=== PATIENT | female | born 1935 | race Caucasian/White ===

== ENCOUNTER → 2017-08-18 | Outpatient (REF) | payer MEDICARE, OTHER | LOC: M LAB REF 18:34 | DX: C44.01 Basal cell carcinoma of skin of lip (principal) | CPT/HCPCS: 88305 ==

== ENCOUNTER 2017-11-16 06:22 | Day surgery (SDC) | payer MEDICARE ==
[2017-11-16] MEDS ORDERED: LIDOCAINE 1% MDV 20ML VIAL SQ (07:00)
[2017-11-16] MEDS ORDERED: LR 1,000 ML IV (07:00)
[2017-11-16] MEDS ORDERED: MIDAZOLAM INJ 2 MG/2 ML VIAL (J2250) As Ordered (07:05)
[2017-11-16] MEDS ORDERED: fentaNYL 100 MCG/2 ML INJECTION (J3010) As Ordered ×2 (07:05→09:30)
[2017-11-16] MEDS ORDERED: PROPOFOL 200 MG/20 ML VIAL As Ordered (07:06)
[2017-11-16] MEDS ORDERED: LIDOCAINE 2% INJ 100 MG/5 ML SDV (FOR ANES.) As Ordered ×2 (07:06→08:59)
[2017-11-16] MEDS ORDERED: ROCURONIUM BROMIDE 50 MG/5 ML VIAL As Ordered (07:06)
[2017-11-16] MEDS: METHYLENE BLUE 0.5% (5MG/ML) 10 ML AMP (PROVAYBLUE)(Q9968 PER 1MG) As Ordered (07:15)
[2017-11-16] MEDS: LIDOCAINE W/EPINEPHRINE 1% 20ML VIAL As Ordered (07:57)
[2017-11-16] MEDS ORDERED: ePHEDrine SULFATE 25 MG/5 ML(5MG/ML) SYRINGE As Ordered ×2 (08:06→09:02)
[2017-11-16] MEDS ORDERED: PHENYLephrine HCL 500 MCG/5 ML (100MCG/ML) SYRINGE (J2370) As Ordered (08:06)
[2017-11-16] MEDS ORDERED: KETOROLAC 60 MG/2 ML VIAL (J1885) As Ordered (09:15)
[2017-11-16] MEDS: BACITRACIN OINT 30GM As Ordered (09:31)
[2017-11-16] MEDS: EPINEPHrine 1MG/ML INJ 30ML MD-VIAL As Ordered (09:32)
[2017-11-16] MEDS ORDERED: fentaNYL 100 MCG/2 ML INJECTION (J3010) IV (10:00)
[2017-11-16] MEDS ORDERED: KETOROLAC 30 MG/ML VIAL (J1885) IV (10:00)
[2017-11-16] MEDS ORDERED: ONDANSETRON 4MG/2ML VIAL (J2405) IV (10:00)
[2017-11-16] MEDS: LR 1,000 ML IV ×2 (10:00→10:15)
[2017-11-16] MEDS: ACETAMINOPH W/CODEINE #3 TAB UD PO (21:53)
[2017-11-17] MEDS: DYAZIDE 37.5/25 CAP (TRIAM/HCTZ) PO (09:19)
[2017-11-17] MEDS: ATENOLOL 50 MG TAB PO (09:19)
[2017-11-17] MEDS: ACETAMINOPH W/CODEINE #3 TAB UD PO (09:23)
== END 2017-11-17 14:36 | disposition home or self-care (01) ==
LOC: M SDC 06:22 → M MSPAV 12:01
DX: C00.2 Malignant neoplasm of external lip, unspecified (principal); I48.0 Paroxysmal atrial fibrillation; I10 Essential (primary) hypertension; E78.00 Pure hypercholesterolemia, unspecified; M12.9 Arthropathy, unspecified; J30.9 Allergic rhinitis, unspecified; Z79.899 Other long term (current) drug therapy; Z79.01 Long term (current) use of anticoagulants; Z79.82 Long term (current) use of aspirin; Z78.0 Asymptomatic menopausal state; Z92.3 Personal history of irradiation; Z85.3 Personal history of malignant neoplasm of breast
CPT/HCPCS: 14040

== ENCOUNTER → 2017-12-02 | Outpatient (REF) | payer MEDICARE | LOC: M LAB REF 16:41 | DX: C44.01 Basal cell carcinoma of skin of lip (principal) | CPT/HCPCS: 87186 ==

== ENCOUNTER 2017-12-09 07:47 | Day surgery (SDC) | payer MEDICARE ==
[2017-12-09] MEDS: LR 1,000 ML IV (09:00)
[2017-12-09] MEDS: METHYLENE BLUE 0.5% (5MG/ML) 10 ML AMP (PROVAYBLUE)(Q9968 PER 1MG) As Ordered (09:59)
[2017-12-09] MEDS: EPINEPHrine 1MG/ML INJ 30ML MD-VIAL As Ordered (10:00)
[2017-12-09] MEDS ORDERED: MIDAZOLAM INJ 2 MG/2 ML VIAL (J2250) As Ordered (10:07)
[2017-12-09] MEDS ORDERED: LIDOCAINE 2% INJ 100 MG/5 ML SDV (FOR ANES.) As Ordered (10:07)
[2017-12-09] MEDS ORDERED: fentaNYL 250 MCG/5 ML INJECTION (J3010) As Ordered (10:07)
[2017-12-09] MEDS ORDERED: PROPOFOL 200 MG/20 ML VIAL As Ordered (10:07)
[2017-12-09] MEDS ORDERED: ONDANSETRON 4MG/2ML VIAL (J2405) As Ordered (10:07)
[2017-12-09] MEDS: LIDOCAINE W/EPINEPHRINE 1% 20ML VIAL As Ordered (11:16)
[2017-12-09] MEDS: BACITRACIN OINT 30GM As Ordered (11:19)
== END 2017-12-09 12:00 | disposition home or self-care (01) ==
LOC: M SDC 07:47
DX: L57.9 Skin changes due to chronic exposure to nonionizing radiation, unspecified (principal); I48.91 Unspecified atrial fibrillation; I10 Essential (primary) hypertension; Z79.82 Long term (current) use of aspirin; Z79.899 Other long term (current) drug therapy
CPT/HCPCS: 40799

== ENCOUNTER → 2018-02-14 | Outpatient (CLI) | payer MEDICARE | LOC: M PLARAD 13:07 | DX: Z85.3 Personal history of malignant neoplasm of breast (principal); R22.2 Localized swelling, mass and lump, trunk | CPT/HCPCS: 78815 ==

== ENCOUNTER → 2018-02-15 | Outpatient (REF) | payer MEDICARE | LOC: M LAB REF 09:57 | DX: C44.01 Basal cell carcinoma of skin of lip (principal) | CPT/HCPCS: 88305 ==

== ENCOUNTER → 2018-04-11 | Outpatient (CLI) | payer MEDICARE | LOC: M ONCR 08:56 | DX: C50.912 Malignant neoplasm of unspecified site of left female breast (principal) | CPT/HCPCS: G0463 ==

== ENCOUNTER → 2018-05-16 | Outpatient (REF) | payer MEDICARE ==
[2018-05-16 14:20] LABS: FOLATE > 24.0 NG/ML
== END ==
LOC: M LAB REF 13:41
DX: D75.89 Other specified diseases of blood and blood-forming organs (principal)
CPT/HCPCS: 82746

== ENCOUNTER → 2018-07-05 | Outpatient (CLI) | payer MEDICARE ==
[~2018-07-05] MED LIST: ACET30TAB PO; ANAS1TAB2 PO; ASPI1TAB PO; ATEN50TA2 PO; CALC600T60 PO; ELIQ2.5T PO; METO1TAB7 PO; MULTCAP PO; POTA99TA PO; TRIA37.5 PO; TRIA37.53 PO; VICO5TAB16 PO
--- NOTE | 2018-07-06 10:37 | RADONC ---
RADIATION ONCOLOGY FOLLOWUP NOTE DATE: 07/05/2018 CHART NUMBER: [id number] DIAGNOSIS: Left breast cancer. STAGE: Recurrent ECOG PERFORMANCE STATUS: 0 FOLLOWUP NOTE: Ms. Boston is a very pleasant 83-year-old white female with the diagnosis of recurrent left breast cancer who is well-known to me and is now presenting for reevaluation of her left chest wall. The patient's review of systems is noncontributory. She denies nausea, vomiting, fevers, chills, night sweats, diplopia, headaches, anxiety or depression, anorexia, weight loss, visual disturbances, chest pain, urinary or bowel difficulties, bone pain, or neurological problems. PHYSICAL EXAMINATION: The patient is a well-developed, well-nourished female in no acute distress. HEENT exam is normocephalic, atraumatic. Extraocular movements are intact. There is no palpable cervical, supraclavicular, infraclavicular, axillary, or inguinal lymphadenopathy present. Lungs are clear to auscultation and percussion. Heart has a regular rate and rhythm. Abdomen is benign with no hepatosplenomegaly, masses, or tenderness. The patient's chest reveals bilateral mastectomy scars present. There is no evidence of nodularity, ulceration, or residual disease of her left chest wall. Skeletal examination reveals no tenderness to pressure or percussion of the bony skeleton. Extremities reveal no clubbing, cyanosis, or edema. Neurologic exam is grossly intact, as is the remainder of the physical examination. ASSESSMENT: The patient is clinically stable at this time. She is being seen by Dr. Salgado in medical oncology for her systemic treatment. I have scheduled the patient at her request to see me again in 3 months for continued close observation. The patient will also continue self chest wall examination and has been instructed to contact me if she has any concerns whatsoever. cc: MD Penny Lancaster MD Jason White, MD
== END ==
LOC: M ONCR 09:42
PROVIDERS: ATTEND Radiology Radiation Oncology
DX: Z85.3 Personal history of malignant neoplasm of breast (principal)

== ENCOUNTER → 2018-10-04 | Outpatient (CLI) | payer MEDICARE ==
--- NOTE | 2018-10-05 09:13 | RADONC ---
RADIATION ONCOLOGY FOLLOWUP NOTE DATE: 10/04/2018 CHART #: [id number] DIAGNOSIS: Left breast cancer. STAGE: Recurrent. ECOG PERFORMANCE STATUS: 0. FOLLOWUP NOTE: Ms. Boston is a very pleasant 83-year-old white female with the diagnosis of a recurrent left breast carcinoma who is well-known to me and is now presenting for routine followup visit and reevaluation of her left chest wall. The patient presents today reporting that she is doing quite well with no complaints at this time related to her radiation therapy or disease. She has no chest wall or bone pain. REVIEW OF SYSTEMS: The patient's review of systems is noncontributory. Denies nausea, vomiting, fevers, chills, night sweats, diplopia, headaches, anxiety or depression, anorexia, weight loss, visual disturbances, chest pain, urinary or bowel difficulties, bone pain, or neurological problems. PHYSICAL EXAMINATION: The patient is a well-developed, well-nourished, 83-year-old female in no acute distress. HEENT exam is normocephalic, atraumatic. Extraocular movements are intact. There is no palpable cervical, supraclavicular, infraclavicular, axillary, or inguinal lymphadenopathy present. Lungs are clear to auscultation and percussion. Heart has a regular rate and rhythm. Abdomen is benign with no hepatosplenomegaly, masses, or tenderness. Breast examination reveals the right breast is free of masses or discharge. Her left chest wall is smooth with no evidence of nodularity, ulceration or recurrent disease. Skeletal examination reveals no tenderness to pressure or percussion of the bony skeleton. Extremities reveal no clubbing, cyanosis, or edema. Neurologic exam is grossly intact, as is the remainder of the physical examination. ASSESSMENT: The patient is clinically doing well and is presently undergoing systemic therapy with her medical oncologist, Dr. Salgado. She is being seen by Dr. Salgado on a monthly basis. In light of this, I am discharging her from my followup except on a p.r.n. basis. I let her know that we are available to her at anytime if she should have any questions or if we could be of any assistance whatsoever. The patient has my cell phone number as well as my office number. cc: MD Penny Lancaster MD Jason White, MD
== END ==
LOC: M ONCR 09:51
PROVIDERS: ATTEND Radiology Radiation Oncology
DX: C50.912 Malignant neoplasm of unspecified site of left female breast (principal)

== ENCOUNTER → 2018-11-09 | Outpatient (CLI) | payer MEDICARE ==
[~2018-11-09] MED LIST changes: +ACET-716 PO; -ACET30TAB PO; -ASPI1TAB PO; +ASPI81TA26 PO; +HM P99TA PO; -VICO5TAB16 PO; +VICO5TAB17 PO
--- NOTE | 2018-11-09 13:58 | REP ---
UNILATERAL MAMMOGRAM RIGHT BREAST WITH 3D TOMOSYNTHESIS: Patient has had a prior left mastectomy for cancer, 01/03/2015. Right breast mammogram performed in the MLO and CC projections with 3D tomosynthesis and compared to multiple prior exams, most recently 10/25/2017. Mild to moderate fibroglandular tissue is again seen in the right breast with no suspicious mass or architectural distortion. No clustered microcalcifications are seen. IMPRESSION: BIRADS 1: BI-RADS/ACR category 1 mammogram. Negative Mammogram. ACR 1 negative mammogram right breast in this patient status post left mastectomy. Suggest followup mammogram in 1 year. This mammogram was interpreted with the aid of an FDA-approved computer-aided detection system. The patient states she/he had a clinical breast exam in 10/2018. The patient letter being requested is M1. Electronically Signed by Milind Graves MD 11/09/2018 04:40 P
== END ==
LOC: M RAD 12:52
PROVIDERS: ATTEND Internal Medicine Medical Oncology
DX: Z12.31 Encounter for screening mammogram for malignant neoplasm of breast (principal); Z85.3 Personal history of malignant neoplasm of breast; Z90.12 Acquired absence of left breast and nipple

== ENCOUNTER → 2020-04-09 | Outpatient (CLI) | payer MEDICARE ==
[~2020-04-09] MED LIST changes: +FLUTISP
--- NOTE | 2020-04-18 08:42 | REP ---
RIGHT BREAST MAMMOGRAM WITH 3D-TOMOSYNTHESIS HISTORY: Malignant mastectomy left breast in 2014. No family history of breast cancer. COMPARISON: Mammogram 11/09/2018, as well as other prior exams. TECHNIQUE: MLO and CC views of the right breast are performed with 3D tomosynthesis. FINDINGS: There is [id number] fibroglandular tissue in the upper outer quadrant of the right breast. Volpara breast density is B. No new mass or architectural distortion is seen. No clustered microcalcifications are seen. IMPRESSION: ACR 1 negative mammogram right breast in this patient status post left mastectomy. No new mass or clustered microcalcifications. Recommend follow-up mammogram in one year. This mammogram was interpreted with the aid of an FDA approved computer-aided detection system. Patient states her last clinical breast exam was February 2020. Patient letter: 1. BALJEET
== END ==
LOC: M WHC 10:05
PROVIDERS: ATTEND Internal Medicine Medical Oncology
DX: Z12.31 Encounter for screening mammogram for malignant neoplasm of breast (principal); Z85.3 Personal history of malignant neoplasm of breast; Z90.12 Acquired absence of left breast and nipple

== ENCOUNTER 2020-04-15 09:44 | Outpatient (RCR) | payer MEDICARE | END 2020-04-16 | LOC: M PT 09:44 | PROVIDERS: ATTEND Family Medicine | DX: M25.511 Pain in right shoulder (principal) ==

== ENCOUNTER 2020-05-13 12:38 | Outpatient (RCR) | payer MEDICARE | END 2020-05-17 | LOC: M PT 12:38 | PROVIDERS: ATTEND Family Medicine | DX: Z51.89 Encounter for other specified aftercare (principal); M25.511 Pain in right shoulder ==

== ENCOUNTER 2020-05-27 10:31 | Outpatient (RCR) | payer MEDICARE | END 2020-06-16 | LOC: M PT 10:31 | PROVIDERS: ATTEND Family Medicine | DX: M25.511 Pain in right shoulder (principal) ==

== ENCOUNTER → 2021-01-21 | Outpatient (CLI) | payer MEDICARE ==
[~2021-01-21] MED LIST changes: +COVI100V IM; -HM P99TA PO; +MULT-90 PO; +POTA99TA14 PO
--- NOTE | 2021-01-21 12:50 | REP ---
INDICATION: RIGHT SHOULDER PAIN COMPARISON: None. TECHNIQUE: Internal rotation, external rotation, and Y view. FINDINGS: There is increased sclerosis and subtle irregularity to the calcified glenoid rim as well as moderate osteophytes forming along the inferior margin of the humeral head and glenoid. The acromioclavicular joint appears normal. The subacromial space is normal. IMPRESSION: Degenerative changes at the acromioclavicular joint. <Electronically signed by Rey Barbosa > 01/21/21 [id number]
== END ==
LOC: M RAD 12:02
PROVIDERS: ATTEND Internal Medicine Medical Oncology
DX: M19.90 Unspecified osteoarthritis, unspecified site (principal)

== ENCOUNTER → 2021-05-04 | Outpatient (CLI) | payer MEDICARE ==
--- NOTE | 2021-05-04 14:16 | REPMRS ---
Patient History The patient states she had a clinical breast exam in March 2021. Patient is postmenopausal, has history of skin cancer at age 83, and has history of cancer in the left breast at age 79. No known family history of cancer. Malignant mastectomy of the left breast, January 03, 2015. Malignant US guided breast biopsy of the left breast, November 26, 2014. Malignant lumpectomy of the left breast, 2004. Took hormonal contraceptives for 1 month. Took estrogen for 10 years. Took progesterone for 10 years. Took tamoxifen for 5 years. Tomosynthesis is performed. Volpara breast density is c. Patient states no breast complaints today. Patient has signed MRS History Sheet. Digital Woman Screen Mammo: May 04, 2021 - Exam #: [id number] CC and MLO view(s) were taken of the right breast. Technologist: Kirstie Ball, Technologist Prior study comparison: April 09, 2020, bilateral digital woman screen mammo performed at [facility]. November 09, 2018, bilateral digital mammo screening bilat, performed at [facility]. FINDINGS: There are scattered fibroglandular densities. There has been no change in the appearance of the mammogram from the prior studies. There is a mild amount of residual fibroglandular tissue . There is no interval development of dominant mass, architectural distortion, or clustered microcalcification suggestive of malignancy. No significant changes when compared with prior studies. Assessment: BI-RADS/ACR category 1 mammogram. Negative Mammogram. Recommendation Routine screening mammogram in 1 year (for women over age 40). This mammogram was interpreted with the aid of an FDA-approved computer-aided dectection system. Electronically Signed By: Milind Graves MD 05/04/21 [id number]
--- NOTE | 2021-05-04 15:07 | DEXAMM ---
INDICATION: OSTEOPOROSIS. COMPARISON: 10/07/2016, 03/26/2005. TECHNIQUE: Bone density was measured using dual-energy x-ray absorptiometry (DEXA). FINDINGS: AP SPINE L1-L4 BMD 1.589 g/cm2 Young Adult T-Score 3.2 Age Matched Z-Score 5.1. LT FEMUR, TOTAL BMD 0.988 g/cm2 Young Adult T-Score -0.2 Age Matched Z-Score 2.1. LT NECK BMD 0.953 g/cm2 Young Adult T-Score -0.6 Age Matched Z-Score 1.7. RT FEMUR, TOTAL BMD 1.028 g/cm2 Young Adult T-Score 0.2 Age Matched Z-Score 2.4. RT NECK BMD 1.049 g/cm2 Young Adult T-Score 0.1 Age Matched Z-Score 2.4. IMPRESSION: There is normal bone density of the spine. There is normal bone density of the left hip. There is normal bone density of the right hip. The density of the spine has increased 10.1% since the initial exam on 03/26/2005. The density of the spine decreased 2.3% since most recent exam on 10/07/2016. The density of the left hip has decreased 4.4% since initial exam on 03/26/2005. The density of the left hip has increased 0.8% since most recent exam on 10/07/2016. The density of the right hip has decreased 6.2% since the initial exam on 03/26/2005. The density of the right hip has increased 1.5% since the most recent exam on 10/07/2016. FOLLOW-UP: Recommendation for the next bone density exam: 5 years. <Electronically signed by Milind Graves > 05/04/21 [id number]
== END ==
LOC: M WHC 13:06
PROVIDERS: ATTEND Family Medicine
DX: Z12.31 Encounter for screening mammogram for malignant neoplasm of breast (principal); Z85.3 Personal history of malignant neoplasm of breast; Z85.828 Personal history of other malignant neoplasm of skin; Z90.12 Acquired absence of left breast and nipple; M81.0 Age-related osteoporosis without current pathological fracture

== ENCOUNTER → 2021-05-05 | Outpatient (CLI) | payer MEDICARE ==
[~2021-05-05] MED LIST changes: +ISOVUE-300 61% 50ML VIAL As Ordered ONE; +LIDOCAINE 1% MDV 20ML VIAL As Ordered ONE; +methylPREDNISolone SUSP 40MG/ML 1ML VIAL (DEPO MEDROL) As Ordered ONE
--- NOTE | 2021-05-05 17:20 | REP ---
INDICATION: PRIMARY OA RT SHOULDER W/ PAIN. COMPARISON: None TECHNIQUE: The procedure was performed by GETACHEW Vargas, under the direct supervision of Dr. Graves. The benefits and risks of the procedure were explained to the patient, and an informed consent was obtained. Directly prior to the start of the procedure, a formal time-out was completed in the procedure room. The right shoulder joint space was localized using fluoroscopic guidance. The skin was prepped and draped in a sterile fashion. Approximately 5 mL of 1% Lidocaine 10 mg/ml was used as a local anesthetic. Using fluoroscopic guidance, a #22 gauge spinal needle was inserted and advanced into the right shoulder joint space. Approximately 1 mL of Isovue 300 was injected to verify placement. Seven mL of a solution containing 5 mL 1% lidocaine 10 mg/ml and 2 ml Depo-Medrol 40 mg was injected into the joint space. The needle was removed and hemostasis was achieved. FINDINGS: The patient tolerated the procedure well and there were no immediate complications. IMPRESSION: 1. Technically successful right shoulder arthrogram.. 0.1 minutes of fluoroscopy time was utilized for this procedure. Some fluoroscopic images are performed with last image hold technology. These images require no additional radiation. <Electronically signed by Sofy Ronquillo > 05/05/21 1317 <Electronically signed by Milind Graves > 05/05/21 [id number]
== END ==
LOC: M RADPRO 11:59
PROVIDERS: ATTEND Physician Assistant
DX: M19.011 Primary osteoarthritis, right shoulder (principal)
CPT/HCPCS: 20610; 77002; J1030; Q9967

== ENCOUNTER → 2022-05-18 | Outpatient (CLI) | payer MEDICARE ==
[~2022-05-18] MED LIST changes: -ISOVUE-300 61% 50ML VIAL As Ordered ONE; -LIDOCAINE 1% MDV 20ML VIAL As Ordered ONE; -TRIA37.53 PO; +TRIA37.577 PO; -methylPREDNISolone SUSP 40MG/ML 1ML VIAL (DEPO MEDROL) As Ordered ONE
== END ==
LOC: M WHC 14:23
PROVIDERS: ATTEND Family Medicine
DX: Z12.31 Encounter for screening mammogram for malignant neoplasm of breast (principal)

== ENCOUNTER → 2022-06-14 | Outpatient (CLI) | payer MEDICARE | LOC: M PLARAD 12:02 | PROVIDERS: ATTEND Nurse Practitioner | DX: C50.212 Malignant neoplasm of upper-inner quadrant of left female breast (principal) ==

== ENCOUNTER → 2023-05-23 | Outpatient (CLI) | payer MEDICARE ==
[~2023-05-23] MED LIST changes: +ATOR1TAB19; +FLUT50SP17; -FLUTISP
== END ==
LOC: M WHC 12:44
PROVIDERS: ATTEND Nurse Practitioner
DX: Z12.31 Encounter for screening mammogram for malignant neoplasm of breast (principal); Z13.820 Encounter for screening for osteoporosis; Z85.3 Personal history of malignant neoplasm of breast; Z79.82 Long term (current) use of aspirin; Z79.51 Long term (current) use of inhaled steroids; Z79.899 Other long term (current) drug therapy
CPT/HCPCS: 77067; 77080; G0279

== ENCOUNTER → 2024-07-03 | Outpatient (CLI) | payer MEDICARE ==
[~2024-07-03] MED LIST changes: -ATOR1TAB19; +ATOR1TAB19 PO; -FLUT50SP17; +FLUTISP
== END ==
LOC: M WHC 08:53
PROVIDERS: ATTEND Internal Medicine Medical Oncology
DX: Z12.31 Encounter for screening mammogram for malignant neoplasm of breast (principal); R92.331 Mammographic heterogeneous density, right breast; Z90.12 Acquired absence of left breast and nipple; Z85.3 Personal history of malignant neoplasm of breast

== ENCOUNTER → 2024-09-10 | Outpatient (CLI) | payer MEDICARE ==
[~2024-09-10] MED LIST changes: +ISOVUE-370 76% 100ML VIAL As Ordered ONE
== END ==
LOC: M RAD 10:36
PROVIDERS: ATTEND Nurse Practitioner Women's Health
DX: C50.919 Malignant neoplasm of unspecified site of unspecified female breast (principal)
CPT/HCPCS: 71260; 74177; Q9967

== ENCOUNTER 2024-10-05 11:51 | Emergency (ER) | payer OTHER, MEDICARE ==
[~2024-10-05] VITALS: Ht 162.6 cm; Wt 51.4 kg
[~2024-10-05 11:51] MED LIST changes: -ISOVUE-370 76% 100ML VIAL As Ordered ONE
[2024-10-05 15:31] VITALS: BP 176/80; TEMP 98.5; O2SAT 95
[2024-10-05] MEDS ORDERED: TIZA2CAP PO (15:38)
== END 2024-10-05 15:56 | disposition home or self-care (01) ==
LOC: M ED 11:51
DX: M54.2 Cervicalgia (principal); V49.50XA Passenger injured in collision with unspecified motor vehicles in traffic accident, initial encounter; I48.0 Paroxysmal atrial fibrillation; Z79.1 Long term (current) use of non-steroidal anti-inflammatories (NSAID); Z79.810 Long term (current) use of selective estrogen receptor modulators (SERMs); Z79.899 Other long term (current) drug therapy

== ENCOUNTER → 2024-11-05 | Outpatient (CLI) | payer MEDICARE ==
[~2024-11-05] MED LIST changes: +TIZA2CAP PO
== END ==
LOC: M PLARAD 07:44
PROVIDERS: ATTEND Internal Medicine Medical Oncology
DX: C50.212 Malignant neoplasm of upper-inner quadrant of left female breast (principal)
CPT/HCPCS: 78815; A9552

== ENCOUNTER → 2025-02-15 | Outpatient (CLI) | payer MEDICARE ==
[~2025-02-15] MED LIST changes: +CAPE1TAB2 PO; +ISOVUE-370 76% 100 ML VIAL As Ordered ONE
== END ==
LOC: M RAD 08:32
DX: C50.919 Malignant neoplasm of unspecified site of unspecified female breast (principal)
CPT/HCPCS: 71260; 74177; Q9967

== ENCOUNTER → 2025-05-03 | Outpatient (CLI) | payer MEDICARE ==
[~2025-05-03] MED LIST changes: +PROC10TA5 PO
== END ==
LOC: M RAD 14:00
PROVIDERS: ATTEND Internal Medicine Medical Oncology
DX: C50.912 Malignant neoplasm of unspecified site of left female breast (principal); R91.1 Solitary pulmonary nodule; C79.51 Secondary malignant neoplasm of bone
CPT/HCPCS: 71260; Q9967